=== PATIENT | male | born 1970 | race Caucasian/White ===

== ENCOUNTER 2025-07-15 15:28 | Inpatient (IN) | payer MEDICARE, SELFPAY ==
[2025-07-15] VITALS (13 sets, daily range): BP systolic 131–157; BP diastolic 74–99; PULSE 92–108; RESP 13–23; TEMP 36.6; O2SAT 94–98; BMI 29.2
--- NOTE | 2025-07-15 15:37 | EKG_ITS ---
[address] [address] Test Date: 2025-07-15 Pat Name: Haroon Urbina Department: [facility] Room: Gender: Male Master Fisher: SENDY : 1970 Requested By: Order Number: [id number] Reading MD: Pedro Olea Measurements Intervals [place] Rate: 103 P: 66 MO: 152 QRS: 75 QRSD: 102 T: 60 QT: 366 QTc: 479 Interpretive Statements Sinus tachycardia Possible Left atrial enlargement Incomplete right bundle branch block Cannot rule out Inferior infarct , age undetermined Electronically Signed On 07-15-2025 17:31:22 PDT by Pedro Olea
--- NOTE | 2025-07-15 15:50 | DI.RAD.S_ITS ---
PROCEDURE: XR CHEST 1V INDICATIONS: abdominal pain TECHNIQUE: One view of the chest was acquired. COMPARISON: None. FINDINGS: Surgical changes and devices: None. Lungs and pleura: Lungs are clear. No pleural effusions or pneumothorax. Mild bibasilar atelectasis. Mediastinum: Mediastinal contours appear normal. Heart size is normal. Bones and chest wall: No suspicious bony lesions. A circular radiodensity overlies the right mid lung, and is likely external to the patient common corresponding to clothing or a arm sling. IMPRESSION: No consolidative pneumonia. A circular radiodensity overlies the right mid lung, and is likely external to the patient common corresponding to clothing or a arm sling. Dictated by: Beto Pompa M.D. on 07/15/2025 at 16:12 Approved by: Beto Pompa M.D. on 07/15/2025 at 16:14
[2025-07-15 16:00] LABS: Add Manual Diff / Slide Review NO; Hematocrit 50.1 % (41-53); Hemoglobin 16.6 g/dL (13.5-17.5); Lymphocytes Absolute Auto 1600 /uL (1100-4500); Mean Corpuscular HGB Conc 33.1 % (30-36); Mean Corpuscular Hemoglobin 28.7 PG (26-34); Mean Corpuscular Volume 86.7 fL (80-100); Platelet Count 279 X10^3/uL (150-400)
[2025-07-15] MEDS: SODIUM CHLORIDE 0.9% 1,000 ML 1000 ML IV (16:04)
[2025-07-15] MEDS: KETOROLAC 30 MG/ML VIAL 15 MG IV (16:04)
[2025-07-15 16:13] LABS: Alanine Aminotransferase 35 IU/L (<50); Albumin 4.4 g/dL (3.5-5.0); Albumin Globulin Ratio 1.1 (1.0-2.8); Alkaline Phosphatase 109 U/L (38-126); Blood Urea Nitrogen 17 mg/dL (9-20); Calcium 9.2 mg/dL (8.4-10.2); Carbon Dioxide 26 mmol/L (22-32); Chloride 100 mmol/L (98-107); Estimated Glomerular Filt Rate > 60 mL/min (>60); Globulin 3.9 g/dL (1.7-4.1); Glucose 119 mg/dL (70-99); HEMOLYSIS 30 (0-50); Lactate (Lactic Acid) 1.7 mmol/L (0.7-2.1); Lipase 63 U/L (23-300); Magnesium 2.1 mg/dL (1.6-2.3); Potassium 4.0 mmol/L (3.4-5.1); Sodium 135 mmol/L (137-145); Total Protein 8.3 g/dL (6.3-8.2)
--- NOTE | 2025-07-15 16:46 | DI.CT.S_ITS ---
PROCEDURE: CT ABDOMEN PELVIS W CON INDICATIONS: RLQ abd pain TECHNIQUE: After the administration of intravenous contrast, axial sections acquired from the lung bases to the pubic symphysis. Coronal and sagittal reformats were performed. For radiation dose reduction, the following was used: automated exposure control, adjustment of mA and/or kV according to patient size. COMPARISON: None. FINDINGS: Image quality: Diagnostic. Lower Chest: No significant findings. ABDOMEN: Liver: No solid mass. Gallbladder: No radiopaque gallstones or wall thickening. Biliary ducts: No biliary dilation. Pancreas: No ductal dilation. Spleen: Size is within normal limits. Adrenal Glands: No adrenal nodules. Kidneys and Ureters: No hydronephrosis. No solid mass. No complex renal cystic lesion which requires follow up. Stomach and Bowel: In this patient with this given history, scrutiny is given to the appendix. The appendix is well seen and demonstrates normal caliber at 6 mm. No focal right lower quadrant inflammatory change can be seen. Mildly dilated loops of small bowel can be seen proximally, measuring up to 3.4 cm. The distal small bowel loops are relatively decompressed. A transition point can be seen within the mid abdomen, as on series 4 image 48, where there is small bowel thickening seen. No significant colonic abnormality is seen. Peritoneum: No abnormal intraperitoneal fluid. No free air. Ventral Wall: A mild periumbilical hernia is seen, containing fat. Abdominal Nodes: No retroperitoneal or mesenteric adenopathy by size criteria. Vessels: Aorta and inferior vena cava are normal in size. PELVIS: Pelvic Organs: Unremarkable. Bladder: No bladder wall thickening, accounting for underdistention. Pelvic Nodes: No enlarged lymph nodes. Miscellaneous: No inguinal hernias are seen. Bones: No aggressive osseous abnormality. There is focal L5-S1 degenerative change. Milder degenerative changes are seen elsewhere. IMPRESSION: Small-bowel obstruction, with a transition point seen within the mid abdomen, at a site of small bowel wall thickening. Please consider an early or partial small bowel obstruction. Normal appendix. Additional findings: Mild fat containing periumbilical hernia Focal L5-S1 degenerative change Note: Dr. Hutchins was not available to discuss this case at the time of this dictation. Case discussed by telephone with nurse Khalida at 4:52 p.m. [place] time. She will discuss the case with Dr. Hutchins, who will call back if there are any questions. Dictated by: Issa Morgan M.D. on 07/15/2025 at 15:47 Approved by: Issa Morgan M.D. on 07/15/2025 at 15:53
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
[2025-07-15] MEDS: SODIUM CHLORIDE 0.9% 1,000 ML 100 ML IV (19:39)
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
[2025-07-15] MEDS: SODIUM CHLORIDE 0.9% FLUSH 10 ML IV (20:52)
[2025-07-15 23:47] LABS: UR Morphine/Opiate cutoff 300 Negative (Negative); Urine MDMA Negative (Negative); Urine Methamphetamines Positive (Negative); Urine Tetrahydrocannabinol Negative (Negative); Urine Tricyclic Antidepressant Negative (Negative)
--- NOTE | 2025-07-16 | DI.RAD.S_ITS ---
PROCEDURE: [place] SMALL BOWEL FOLLOW THROUGH INDICATIONS: CT scan showing small bowel obstruction COMPARISON: [facility], CT, CT ABDOMEN PELVIS W CON, 07/15/2025, 16:37. FINDINGS: Small bowel: On 1 hour post Gastrografin administration images, there is transit of intraluminal contrast to the cecum and mid transverse colon. The small bowel loops are of normal caliber throughout. Mucosal folds are smooth and of normal thickness. No strictures, intraluminal masses, or extrinsic mass effects are noted. The terminal ileum is identified, and is normal in morphology. The contrast on 3 hour images reaches the sigmoid colon. IMPRESSION: No functional or anatomic obstructed small bowel or large bowel obstruction on small bowel follow-through. Dictated by: Beto Pompa M.D. on 07/16/2025 at 12:12 Approved by: Beto Pompa M.D. on 07/16/2025 at 12:14
[2025-07-16 00:15] LABS: Appearance Urine UA CLEAR; Bilirubin Urine UA NEGATIVE (NEGATIVE); Color Urine UA YELLOW; Glucose Urine UA NEGATIVE (Negative); Ketones Urine UA NEGATIVE (NEGATIVE); Leukocyte Esterase Urine UA NEGATIVE (NEGATIVE); Nitrite Urine UA NEGATIVE (Negative); Occult Blood Urine UA TRACE-INTACT (Negative); Protein Urine UA NEGATIVE (Negative); Specific Gravity Urine UA 1.010 (1.000-1.035); Urobilinogen Urine UA 1.0 E.U./dL (0.2); pH Urine UA 6.0 (4.5-8.0)
[2025-07-16 00:23] LABS: Culture Indicated Urine Cult Not Indicated
[2025-07-16] MEDS: SODIUM CHLORIDE 0.9% 1,000 ML 100 ML IV ×2 (05:34→16:04)
[2025-07-16 07:42] LABS: Add Manual Diff / Slide Review NO; Hematocrit 45.0 % (41-53); Hemoglobin 15.3 g/dL (13.5-17.5); Lymphocytes Absolute Auto 1800 /uL (1100-4500); Mean Corpuscular HGB Conc 34.0 % (30-36); Mean Corpuscular Hemoglobin 29.3 PG (26-34); Mean Corpuscular Volume 86.2 fL (80-100); Platelet Count 254 X10^3/uL (150-400)
[2025-07-16 07:59] LABS: Alanine Aminotransferase 34 IU/L (<50); Albumin 3.7 g/dL (3.5-5.0); Albumin Globulin Ratio 1.2 (1.0-2.8); Alkaline Phosphatase 108 U/L (38-126); Blood Urea Nitrogen 16 mg/dL (9-20); Calcium 8.5 mg/dL (8.4-10.2); Carbon Dioxide 22 mmol/L (22-32); Chloride 104 mmol/L (98-107); Estimated Glomerular Filt Rate > 60 mL/min (>60); Globulin 3.0 g/dL (1.7-4.1); Glucose 103 mg/dL (70-99); HEMOLYSIS < 15 (0-50); Potassium 4.1 mmol/L (3.4-5.1); Sodium 135 mmol/L (137-145); Total Protein 6.7 g/dL (6.3-8.2)
[2025-07-16] MEDS: SODIUM CHLORIDE 0.9% FLUSH 10 ML IV (08:53)
--- NOTE | 2025-07-16 09:36 | PM.PN.IH.1 ---
Subjective Subjective Date Patient Seen: 07/16/25 Time Patient Seen: 09:15 Interval history: Patient is seen on the commode having massive diarrhea patient is still having abdominal pain. Patient is scheduled for a small-bowel follow-through with Gastrografin today to rule out small-bowel obstruction. Morning laboratory shows WBC of 7.5 hemoglobin is 15.3 hematocrit is 45.0 platelets are 254,000 sodium is 135 potassium 4.1 chloride 104 bicarb is 22 BUN 16 creatinine 0.86 random blood sugar is 103 lactate is 1.7 normal LFTs. Vitals: Temperature is 97.9? pulse 92 respirations 16 BP is 150/99 SaO2 is 97% on room air. Heart regular rate and rhythm without murmurs. Lungs diminished in the bases poor inspiratory and expiratory effort poor chest wall motion noted. Abdomen is distended soft with hyperactive bowel sounds no masses or peritoneal signs. Impression: Abdominal pain with CT scan showing possible small bowel obstruction Patient having diarrhea rule out infectious etiology Plan: Discussed with patient the findings we will obtain small-bowel follow-through with Gastrografin today rule out small-bowel obstruction. We will obtain a stool culture rule out infectious diarrhea. Medicine is to see patient for medical management. All questions were answered to patient's satisfaction. Exam Vital Signs (past 8 hours): Oxygen Delivery Method Room Air Oxygen Flow Rate 0 Objective Labs 07/16/25 07:03 07/16/25 07:03 Labs: Laboratory Results - last 24 hr 07/15/25 07/15/25 07/15/25 15:55 23:11 23:11 WBC 8.3 RBC 5.78 Hgb 16.6 Hct 50.1 MCV 86.7 MCH 28.7 MCHC 33.1 RDW 14.3 Plt Count 279 Neut % (Auto) 66.4 Lymph % (Auto) 19.8 L [place] % (Auto) 10.9 Eos % (Auto) 2.0 Baso % (Auto) 0.9 Neut # (Auto) 5500 Lymph # (Auto) 1600 [place] # (Auto) 900 Eos # (Auto) 200 Baso # (Auto) 100 Sodium 135 L Potassium 4.0 Chloride 100 Carbon Dioxide 26 BUN 17 Creatinine 1.02 Estimated GFR > 60 BUN/Creatinine Ratio 16.7 Glucose 119 H Lactate 1.7 Calcium 9.2 Magnesium 2.1 Total Bilirubin 0.5 AST 40 ALT 35 Alkaline Phosphatase 109 Total Protein 8.3 H Albumin 4.4 Globulin 3.9 Albumin/Globulin Ratio 1.1 Lipase 63 Urine Color Yellow Urine Appearance Clear Urine pH 6.0 TNP Ur Specific [place] 1.010 Urine Protein Negative Urine Glucose (UA) Negative Urine Ketones Negative Urine Occult Blood Trace-intact Urine Nitrate Negative Urine Bilirubin Negative Urine Urobilinogen 1.0 Ur Leukocyte Esterase Negative Urine RBC 0-1/hpf Urine WBC None seen Ur Squamous Epith Cells None seen Urine Bacteria None seen Ur Culture Indicated? Cult not indicated Vol Urine Centrifuged 10ml (spun) U Opiates 300ng/mL cut Negative Ur Oxycodone Screen Negative Urine Methadone Screen Negative Ur Barbiturates Screen Negative U Tricyclic Antidepress Negative Ur Phencyclidine Scrn Negative Ur Amphetamines Screen Positive H U Methamphetamines Scrn Positive H Ur MDMA Scrn (Ecstasy) Negative U Benzodiazepines Scrn Negative Urine Cocaine Screen Negative U Marijuana (THC) Screen Negative Urine Specific [place] TNP Ur Creatinine TNP 07/16/25 07:03 WBC 7.5 RBC 5.22 Hgb 15.3 Hct 45.0 MCV 86.2 MCH 29.3 MCHC 34.0 RDW 14.1 Plt Count 254 Neut % (Auto) 57.7 Lymph % (Auto) 24.1 L [place] % (Auto) 12.6 Eos % (Auto) 4.6 H Baso % (Auto) 1.0 Neut # (Auto) 4300 Lymph # (Auto) 1800 [place] # (Auto) 900 Eos # (Auto) 300 Baso # (Auto) 100 Sodium 135 L Potassium 4.1 Chloride 104 Carbon Dioxide 22 BUN 16 Creatinine 0.86 Estimated GFR > 60 BUN/Creatinine Ratio 18.6 Glucose 103 H Lactate Calcium 8.5 Magnesium Total Bilirubin 0.5 AST 43 ALT 34 Alkaline Phosphatase 108 Total Protein 6.7 Albumin 3.7 Globulin 3.0 Albumin/Globulin Ratio 1.2 Lipase Urine Color Urine Appearance Urine pH Ur Specific [place] Urine Protein Urine Glucose (UA) Urine Ketones Urine Occult Blood Urine Nitrate Urine Bilirubin Urine Urobilinogen Ur Leukocyte Esterase Urine RBC Urine WBC Ur Squamous Epith Cells Urine Bacteria Ur Culture Indicated? Vol Urine Centrifuged U Opiates 300ng/mL cut Ur Oxycodone Screen Urine Methadone Screen Ur Barbiturates Screen U Tricyclic Antidepress Ur Phencyclidine Scrn Ur Amphetamines Screen U Methamphetamines Scrn Ur MDMA Scrn (Ecstasy) U Benzodiazepines Scrn Urine Cocaine Screen U Marijuana (THC) Screen Urine Specific [place] Ur Creatinine PFSH Social History household members: none Smoking Status: Current every day smoker alcohol intake: current Assessment & Plan Time-Based Coding :: [TOTAL MINUTES] spent with patient and on the chart (including review of chart, obtaining history, exam, reviewing outside data, placing orders, documenting exam and treatment plan, and counseling patient) on [DATE]. 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
[2025-07-16 12:00] VITALS: BP 155/107; PULSE 106; RESP 14; TEMP 36.6; O2SAT 94
--- NOTE | 2025-07-16 12:31 | P.PN_ITS ---
Subjective Subjective Date Patient Seen: 07/16/25 Time Patient Seen: 12:30 Interval history: Back in his room he is still having diarrhea and abdominal cramping. Small- bowel follow-through shows contrast within the colon within 1-1-1/2 hours. No signs of bowel obstruction. Patient is still having abdominal cramping. Patient's drug screen was positive for meth. Discussed with patient the findings we will go ahead and start him on a clear liquid diet continue with the diarrhea workup all questions were answered patient's satisfaction. Discussed the need to stop using methamphetamine. We will recheck laboratory in the morning. No need for emergent surgical intervention at this time. Exam Vital Signs (past 8 hours): - 07/16/25 12:00 Temperature 97.9 F Pulse Rate 106 H Respiratory Rate 14 Blood Pressure 155/107 H Pulse Oximetry 94 Oxygen Flow Rate 0 Oxygen Delivery Method Room Air Oxygen Flow Rate 0 Objective Labs 07/16/25 07:03 07/16/25 07:03 Labs: Laboratory Results - last 24 hr 07/15/25 07/15/25 07/15/25 15:55 23:11 23:11 WBC 8.3 RBC 5.78 Hgb 16.6 Hct 50.1 MCV 86.7 MCH 28.7 MCHC 33.1 RDW 14.3 Plt Count 279 Neut % (Auto) 66.4 Lymph % (Auto) 19.8 L [place] % (Auto) 10.9 Eos % (Auto) 2.0 Baso % (Auto) 0.9 Neut # (Auto) 5500 Lymph # (Auto) 1600 [place] # (Auto) 900 Eos # (Auto) 200 Baso # (Auto) 100 Sodium 135 L Potassium 4.0 Chloride 100 Carbon Dioxide 26 BUN 17 Creatinine 1.02 Estimated GFR > 60 BUN/Creatinine Ratio 16.7 Glucose 119 H Lactate 1.7 Calcium 9.2 Magnesium 2.1 Total Bilirubin 0.5 AST 40 ALT 35 Alkaline Phosphatase 109 Total Protein 8.3 H Albumin 4.4 Globulin 3.9 Albumin/Globulin Ratio 1.1 Lipase 63 Urine Color Yellow Urine Appearance Clear Urine pH 6.0 TNP Ur Specific [place] 1.010 Urine Protein Negative Urine Glucose (UA) Negative Urine Ketones Negative Urine Occult Blood Trace-intact Urine Nitrate Negative Urine Bilirubin Negative Urine Urobilinogen 1.0 Ur Leukocyte Esterase Negative Urine RBC 0-1/hpf Urine WBC None seen Ur Squamous Epith Cells None seen Urine Bacteria None seen Ur Culture Indicated? Cult not indicated Vol Urine Centrifuged 10ml (spun) U Opiates 300ng/mL cut Negative Ur Oxycodone Screen Negative Urine Methadone Screen Negative Ur Barbiturates Screen Negative U Tricyclic Antidepress Negative Ur Phencyclidine Scrn Negative Ur Amphetamines Screen Positive H U Methamphetamines Scrn Positive H Ur MDMA Scrn (Ecstasy) Negative U Benzodiazepines Scrn Negative Urine Cocaine Screen Negative U Marijuana (THC) Screen Negative Urine Specific [place] TNP Ur Creatinine TNP 07/16/25 07:03 WBC 7.5 RBC 5.22 Hgb 15.3 Hct 45.0 MCV 86.2 MCH 29.3 MCHC 34.0 RDW 14.1 Plt Count 254 Neut % (Auto) 57.7 Lymph % (Auto) 24.1 L [place] % (Auto) 12.6 Eos % (Auto) 4.6 H Baso % (Auto) 1.0 Neut # (Auto) 4300 Lymph # (Auto) 1800 [place] # (Auto) 900 Eos # (Auto) 300 Baso # (Auto) 100 Sodium 135 L Potassium 4.1 Chloride 104 Carbon Dioxide 22 BUN 16 Creatinine 0.86 Estimated GFR > 60 BUN/Creatinine Ratio 18.6 Glucose 103 H Lactate Calcium 8.5 Magnesium Total Bilirubin 0.5 AST 43 ALT 34 Alkaline Phosphatase 108 Total Protein 6.7 Albumin 3.7 Globulin 3.0 Albumin/Globulin Ratio 1.2 Lipase Urine Color Urine Appearance Urine pH Ur Specific [place] Urine Protein Urine Glucose (UA) Urine Ketones Urine Occult Blood Urine Nitrate Urine Bilirubin Urine Urobilinogen Ur Leukocyte Esterase Urine RBC Urine WBC Ur Squamous Epith Cells Urine Bacteria Ur Culture Indicated? Vol Urine Centrifuged U Opiates 300ng/mL cut Ur Oxycodone Screen Urine Methadone Screen Ur Barbiturates Screen U Tricyclic Antidepress Ur Phencyclidine Scrn Ur Amphetamines Screen U Methamphetamines Scrn Ur MDMA Scrn (Ecstasy) U Benzodiazepines Scrn Urine Cocaine Screen U Marijuana (THC) Screen Urine Specific [place] Ur Creatinine PFSH Social History household members: none Smoking Status: Current every day smoker alcohol intake: current Assessment & Plan Time-Based Coding :: [TOTAL MINUTES] spent with patient and on the chart (including review of chart, obtaining history, exam, reviewing outside data, placing orders, documenting exam and treatment plan, and counseling patient) on [DATE]. Quality VTE Deep Vein Thrombosis/Pulmonary Embolism Present on Admission: No [employer] Cafeteria Head Cook Document charge(s): Yes
--- NOTE | 2025-07-16 13:27 | CM.DANOTE ---
Initial DCP Assessment Visit Note Reviewed EMR and team rounds for pt's medical status and updates. Met with pt at bedside to introduce self and role, pt was found to be alert/oriented, but distracted by severe pain at the time of this visit, and unable to engage in assessment questions. 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 Pt resides alone in a mobile home independently. He has a friend who drove him to the hospital, and will also plan on transporting him back home once he's medically stable for d/c. Payor: Alvin Attending: Dr. Kennedy Pt presnted to the ED with c/o R-lower quadrant pain that wraps around his flank for the last 48-hours. CT Abd/Pelvis was concerning for a small bowel obstruction and a periambilical hernia. Surgery was consulted, and plan was made to admit and start with a Gastrographin study in order to determine if he does have a small bowel obstruction. DCP will continue to follow for any further evolving d/c needs. Discharge Planning/Care Management CM Discharge Assessment Start: 07/15/25 19:59 Freq: Status: Active Protocol: Document 07/16/25 13:24 DPL (Rec: 07/16/25 13:27 DPL [id number]) Discharge Planning Assessment Assigned Discharge BRANDON Jameson Dental Practitioner Insurance Alvin Advance Directives? No History Provided By Patient,Medical Record Has Patient been No admitted in last 30 days? Prior Living Mobile home Arrangements Household Members none Type of Relies on Others transporation used prior to admit Independent with ADL Yes 's Is patient alert and Yes oriented? Comment N/A Caregiver for No Another Comment N/A Barriers to No Discharge Discharge Plan Home Referrals Initiated None needed Whiteboard Updated Yes in Patient Room with name and ext. # of Airport Utility Worker Review Status In Process Please Provide Date 07/16/25 Initial DC Assessment Was Performed
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
[2025-07-16 18:00] VITALS: BP 160/106; PULSE 96; RESP 12; TEMP 36.9; O2SAT 97
[2025-07-16 20:14] VITALS: BP 145/96; PULSE 95; RESP 17; TEMP 36.6; O2SAT 98
[2025-07-17 01:39] VITALS: BP 155/106; PULSE 99; RESP 17; TEMP 36.4; O2SAT 95
[2025-07-17] MEDS: SODIUM CHLORIDE 0.9% 1,000 ML 100 ML IV (01:51)
[2025-07-17 05:53] LABS: Hematocrit 45.4 % (41-53); Hemoglobin 15.2 g/dL (13.5-17.5); Mean Corpuscular HGB Conc 33.4 % (30-36); Mean Corpuscular Hemoglobin 28.8 PG (26-34); Mean Corpuscular Volume 86.3 fL (80-100); Platelet Count 249 X10^3/uL (150-400)
[2025-07-17 06:06] LABS: Alanine Aminotransferase 42 IU/L (<50); Albumin 3.9 g/dL (3.5-5.0); Albumin Globulin Ratio 1.2 (1.0-2.8); Alkaline Phosphatase 92 U/L (38-126); Blood Urea Nitrogen 12 mg/dL (9-20); Calcium 8.3 mg/dL (8.4-10.2); Carbon Dioxide 26 mmol/L (22-32); Chloride 105 mmol/L (98-107); Estimated Glomerular Filt Rate > 60 mL/min (>60); Globulin 3.3 g/dL (1.7-4.1); Glucose 104 mg/dL (70-99); HEMOLYSIS < 15 (0-50); Potassium 3.6 mmol/L (3.4-5.1); Sodium 137 mmol/L (137-145); Total Protein 7.2 g/dL (6.3-8.2)
--- NOTE | 2025-07-17 07:00 | DI.RAD.S_ITS ---
PROCEDURE: XR KUB INDICATIONS: Follow-up small-bowel follow-through TECHNIQUE: One view of the abdomen acquired. COMPARISON: [facility], , [place] SMALL BOWEL FOLLOW THROUGH, 07/16/2025, 8:21. FINDINGS: Surgical changes and devices: None. Bowel: Bowel gas pattern is normal except for slight prominence of gas filling of several small bowel loops of the left mid abdomen. Oral contrast has progressed largely through the colon without visualized evidence of obstruction or dilatation involving the colon. Mild diverticulosis is noted on the left.. Soft tissues: No suspicious abdominal calcifications. Visualized solid organ contours appear normal in size. Bones: No suspicious bony lesions. IMPRESSION: No acute disease, almost complete clearance of oral contrast from the large and small bowel. Minimal small bowel prominence left mid abdomen, nonspecific. Dictated by: Alvino Zuniga M.D. on 07/17/2025 at 9:04 Approved by: Alvino Zuniga M.D. on 07/17/2025 at 9:05
[2025-07-17 08:00] VITALS: BP 151/97; PULSE 98; RESP 14; TEMP 36.8; O2SAT 97
[2025-07-17] MEDS: ACETAMINOPHEN 325 MG TABLET 650 MG PO (08:30)
[2025-07-17] MEDS: SODIUM CHLORIDE 0.9% FLUSH 10 ML IV (08:31)
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
--- NOTE | 2025-07-17 10:19 | PM.PN.IH.1 ---
Subjective Subjective Date Patient Seen: 07/17/25 Time Patient Seen: 09:30 Interval history: Patient was resting comfortably in bed abdominal pain is resolving. Patient is small-bowel follow-through yesterday showed contrast within his colon in 1-1-1/2 hours multiple diarrheal stools but is feeling better today. Patient is tolerating diet well. Patient's morning laboratory shows WBC of 7.1 hemoglobin is 15.2 hematocrit is 45.4 platelets are 249,000 sodium is 137 potassium 3.6 chloride 105 bicarb is 26 BUN of 12 creatinine 0.72 random blood sugar is 104 normal LFTs drug screen was positive for meth. KUB done today shows no contrast in the GI tract. Vitals: Temperature is 98.3? pulse 98 respirations 14 BP is 151/97 SaO2 is 97% on room air Heart regular rate and rhythm without murmurs lungs are clear to auscultation poor inspiratory and expiratory effort poor chest wall motion noted abdomen is soft nondistended no masses or peritoneal signs are elicited. Impression: Resolved abdominal pain with CT scan showing possible small bowel obstruction Small-bowel follow-through with Gastrografin shows excellent transit time no signs of bowel obstruction or pathology. Drug screen positive for meth amphetamine Plan: We will go ahead and advance diet as tolerated discussed the probable etiology of the pain with meth use patient was told that he needs to stop this discussed complications of meth and bowel ischemia and pancreatitis patient understands appears to be minimally understanding patient may be discharged as per hospitalist we will advance diet to general. All questions were answered to patient's satisfaction. Exam Vital Signs (past 8 hours): - 07/17/25 08:00 Temperature 98.3 F Pulse Rate 98 H Respiratory Rate 14 Blood Pressure 151/97 H Pulse Oximetry 97 Oxygen Flow Rate 0 Oxygen Delivery Method Room Air Oxygen Flow Rate 0 Objective Labs 07/17/25 05:08 07/17/25 05:08 Labs: Laboratory Results - last 24 hr 07/17/25 05:08 WBC 7.1 RBC 5.26 Hgb 15.2 Hct 45.4 MCV 86.3 MCH 28.8 MCHC 33.4 RDW 14.3 Plt Count 249 Sodium 137 Potassium 3.6 Chloride 105 Carbon Dioxide 26 BUN 12 Creatinine 0.72 Estimated GFR > 60 BUN/Creatinine Ratio 16.7 Glucose 104 H Calcium 8.3 L Total Bilirubin 0.4 AST 46 ALT 42 Alkaline Phosphatase 92 Total Protein 7.2 Albumin 3.9 Globulin 3.3 Albumin/Globulin Ratio 1.2 PFSH Social History household members: none Smoking Status: Current every day smoker alcohol intake: current Assessment & Plan Time-Based Coding :: [TOTAL MINUTES] spent with patient and on the chart (including review of chart, obtaining history, exam, reviewing outside data, placing orders, documenting exam and treatment plan, and counseling patient) on [DATE]. Quality VTE Deep Vein Thrombosis/Pulmonary Embolism Present on Admission: No [employer] Document charge(s): Yes
--- NOTE | 2025-07-17 11:27 | CM.DPC ---
DCP Discharge Home Per MD, pt had bm yesterday and SBO resolving and started on clears and tolerated advancing diet and medically stable to d/c home today with outpt f/u and no identified barriers to discharge. Per RN, dc instructions provided and friend arrived bedside to provide transport today and no concerns noted. BRANDON Pina
[2025-07-18 10:36] LABS: Salmonella/Shigella Screen Final report (.)
[2025-07-18 13:41] LABS: E coli Shiga Toxin EIA Negative (Negative)
== END 2025-07-17 10:11 | disposition home or self-care (01) | DRG 390 ==
LOC: ED 18:15 → AC 19:27
PROVIDERS: Surgery; Admitting Provider Internal Medicine; Emergency Provider Emergency Medicine; Referring Provider Emergency Medicine; Visit Provider Internal Medicine
DX: K56.600 Partial intestinal obstruction, unspecified as to cause (principal); E86.0 Dehydration; F15.90 Other stimulant use, unspecified, uncomplicated; F17.210 Nicotine dependence, cigarettes, uncomplicated; Z86.73 Personal history of transient ischemic attack (TIA), and cerebral infarction without residual deficits; Z66 Do not resuscitate
CPT/HCPCS: 36415; 71045; 74018; 74177; 74250; 80053; 80305; 81001; 83605; 83690; 83735; 85025; 85027; 87045; 93005; 96361; 96374; 99284; J1171; J1885; Q9967